=== PATIENT | male | born 1955 | race African-American/Black ===

== ENCOUNTER 2023-03-18 10:46 | Outpatient (AMB) | payer OTHER, SELFPAY ==
--- NOTE | 2023-03-18 10:47 | MHC.PC.OV ---
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 Patient has a past medical history significant for hypertension, AFib, GERD. Patient's previous PCP was at [place]. Concern--> reports his bilateral knees are often in pain. Does not allow him to do some walking and jogging. He reports getting cortisone injections in the past by an orthopedic which did help reduce his pain. He is not interested in knee total arthroplasties at this time. .. GERD: Has had endoscopy in the past and does report having positive findings of esophageal inflammation. Has been on omeprazole since. .. AFIB: does See a Teacher Associate (Dr. Michael) [facility] cardiology. He reports he is fairly stable on current dose of metoprolol, flecainide for rhythm and rate control. Also continues on Eliquis 5 mg b.i.d. without any overt signs of bleeding. He does reports sometimes having some shortness of breath on heavy exertion though usually stabilizes within a few minutes. .. [facility] Surgical History H/O rotator cuff surgery Family History (Updated 03/18/23 @ 11:11 by Adelfo Vance PA-C) Brother Lung cancer Social History (Updated 03/18/23 @ 11:12 by Adelfo Vance PA-C) Household Members: Spouse Housing: House Alcohol intake: current Alcohol intake frequency: a few times a week Patient Tobacco Use Status: Never used Tobacco service: No Current occupational status: retired Questionnaire PHQ-9 Over the last 2 weeks, how often have you been bothered by any of the following problems? 1. Little interest or pleasure in doing things: not at all 2. Feeling down, depressed, or hopeless: not at all 3. Trouble falling or staying asleep, or sleeping too much: not at all 4. Feeling tired or having little energy: not at all 5. Poor appetite or overeating: not at all 6. Feeling bad about yourself - or that you are a failure or have let yourself or your family down: not at all 7. Trouble concentrating on things, such as reading the newspaper or watching television: not at all 8. Moving or speaking so slowly that other people could have noticed. Or the opposite - being so fidgety or restless that you have been moving around a lot more than usual: not at all 9. Thoughts that you would be better off or of hurting yourself in some way: not at all Total score: 0 Source: Developed by Drs. Messi Drake, Blanche Auguste, Ubaldo Mari and colleagues, with an educational quirino from [employer]. Thrive Questionnaire Date Thrive assessed: 03/18/23 I am a: Patient What is your living situation today?: I have a steady place to live Within the past 12 months, did the food you bought not last and you didn't have the money to get more?: Never true Within the past 12 months, did you worry whether your food would run out before you got money to buy more?: Never true Do you have trouble paying for medicines?: No Do you have trouble getting transportation to medical appointments?: No Do you have trouble paying your heating and electricity bill?: No Do you have trouble taking care of your child, family member or friend?: No Do you have trouble with day-to-day activities such as bathing, preparing meals, shopping, managing finances, etc.?: No Are you currently unemployed and looking for a job?: No Are you interested in more education?: No AUDIT C Alcohol Use Questionnaire (AUDIT-C) 1. How often do you have a drink containing alcohol?: 2-3 times a week 2. How many drinks containing alcohol do you have on a typical day when you are drinking?: 1 or 2 3. How often do you have six or more drinks on one occasion?: Never Total Score: 3 NIRANJAN-7 AMB Questionnaire NIRANJAN-7 Date NIRANJAN - 7 assessed: 03/18/23 Feeling nervous, anxious, or on edge: 0 = Not at all Not being able to stop or control worryin = Not at all Worrying too much about different things: 0 = Not at all Trouble relaxin = Not at all Being so restless that it is hard to sit still: 0 = Not at all Becoming easily annoyed or irritable: 0 = Not at all Feeling afraid as if something awful might happen: 0 = Not at all Total NIRANJAN-7 score (0-4 normal; 5-9 mild; 10-14 moderate; 15-21 severe): 0 Source: Developed by Drs. Messi Drake, Blanche Auguste, Ubaldo Mari and colleagues, with an educational quirino from [employer]. Review of Systems Const Denies headache(s) Eyes Denies loss of vision ENT Denies vertigo, Denies dizziness, Denies headache(s) and Denies sore throat Card Denies chest pain, Denies leg edema and Denies lightheadedness Resp Denies cough, Denies hemoptysis and Denies wheezing GI Denies abdominal pain, Denies melena, Denies constipation, Denies diarrhea and Denies vomiting Denies dysuria, Denies urinary frequency and Denies urinary urgency Musc Denies arthralgias, Denies joint swelling, Denies numbness and Denies tingling Neuro Denies Abnormal speech present, Denies behavioral changes, Denies vertigo, Denies dizziness, Denies headache(s), Denies loss of vision, Denies memory loss, Denies numbness and Denies tingling Psych Denies anxiety, Denies behavioral changes, Denies depression, Denies memory loss and Denies panic attacks Cong/Lymph Denies easy bleeding and Denies easy bruising Aller/Immun Denies wheezing Physical exam (Primary Care) Vital Signs: Last Vital Signs Pulse 50 03/18/23 10:49 BP 134/78 03/18/23 10:49 Pulse Ox 98 03/18/23 10:49 Oxygen Delivery Method Room Air 03/18/23 10:49 BMI result Body Mass Index 32.3 BMI Assessment/Plan discussion: High Tobacco/Smoking Status: Tobacco use Status Tobacco use date assessed 03/18/23 03/18/23 10:56 Patient Tobacco Use Status Never used Tobacco 03/18/23 11:12 PHQ-9: PHQ-9 Score PHQ-9: Total score 0 03/18/23 11:14 Thrive Assessment: Date of Thrive Assessment Date Thrive assessed 03/18/23 03/18/23 10:56 Const General: healthy appearing, no acute distress, alert and awake Nutritional Appearance: well nourished Orientation/consciousness: oriented to person, oriented to place and oriented to time HENMT Ears: TM's normal bilaterally General nose exam: Normal nasal mucous membranes and turbinates present Eyes Conjunctivae: conjunctivae normal Sclerae: sclerae normal Pupils: Equal, round and reactive pupils present Neck Neck: Yes no lymphadenopathy and Yes no JVD Thyroid: Thyroid normal Carotids: no bruits Resp Effort & Inspection: normal respiratory effort and not tachypneic Auscultation: no crackles, no rales, no rhonchi and no wheezes Cardio Rate: regular rate Rhythm: regular rhythm Heart sounds: no murmurs and normal S1 and S2 GI Palpation (GI): Soft to palpation, nontender, no hepatomegaly and no splenomegaly Auscultation: normal bowel sounds Skin General skin exam: no rashes or lesions noted and dry skin Neuro General: oriented to person, oriented to place and oriented to time Cranial nerves: Yes Equal, round and reactive pupils present Speech: No Abnormal speech present Gait exam (Neuro): Normal gait present Motor exam (neuro): no tremor noted Extrem Right upper extremity: full ROM Left upper extremity: full ROM Right lower extremity: full ROM; no edema Left lower extremity: full ROM; no edema Psych Mental Status: mental status grossly normal Speech and movement: Normal speech and movement present Affect: normal affect Attitude: cooperative Thought process: Normal thought process present Assessment and Plan Assessment & Plan (1) Afib: Code(s): I48.91 - Unspecified atrial fibrillation Qualifiers: Atrial fibrillation type: longstanding persistent Qualified Code(s): I48.11 - Longstanding persistent atrial fibrillation Plan: Patient is followed by Cardiology at the [facility] in [place]. He has by annual follow-up. He denies any overt signs of bleeding from his anticoagulation. (2) HTN (hypertension): Code(s): I10 - Essential (primary) hypertension Qualifiers: Hypertension type: primary hypertension Qualified Code(s): I10 - Essential (primary) hypertension Plan: Blood pressure today in office acceptable. Will continue his current dose of amlodipine with goal blood pressure to be below 140/90 (3) Obese: Code(s): E66.9 - Obesity, unspecified Qualifiers: Body mass index: BMI 34.0-34.9 Obesity classification: adult class 1 (BMI 30 - 34.9) Obesity type: due to excess calories Serious obesity comorbidity presence: with serious comorbidity Qualified Code(s): E66.09 - Other obesity due to excess calories; Z68.34 - Body mass index [BMI] 34.0-34.9, adult Plan: Patient does understand his BMI is over 30 will work on being more physically active and adapting to better eating habits to reduce his weight (4) GERD (gastroesophageal reflux disease): Code(s): K21.9 - Gastro-esophageal reflux disease without esophagitis Qualifiers: Esophagitis presence: without esophagitis Qualified Code(s): K21.9 - Gastro-esophageal reflux disease without esophagitis Plan: Continues on PPI therapy and reports his GERD symptoms are fairly well controlled. (5) Bilateral knee pain: Code(s): M25.561 - Pain in right knee; M25.562 - Pain in left knee Qualifiers: Chronicity: chronic Qualified Code(s): M25.561 - Pain in right knee; M25.562 - Pain in left knee; G89.29 - Other chronic pain Plan: He would like to see orthopedic for possible cortisone injection in his knees as he does report bilateral knee pain and arthritis for many years now. (6) Colon cancer screening: Code(s): Z12.11 - Encounter for screening for malignant neoplasm of colon Plan: Has been over 10 years since colonoscopy is been done. He is considering another colonoscopy versus Cologuard. Discuss at next office visit. Orders: Orders Comprehensive [place]. Panel Fast Today I10 - Essential (primary) hypertension Microalbumin, Random (w Creat) Today I10 - Essential (primary) hypertension Complete Blood Count no Diff Today I10 - Essential (primary) hypertension Prostate Specific Antigen Scr Today K21.9 - Gastro-esophageal reflux disease without esophagitis, Z12.5 - Encounter for screening for malignant neoplasm of prostate Lipid Panel Today I10 - Essential (primary) hypertension Referrals Orthopedics Referral G89.29 - Other chronic pain, M25.561 - Pain in right knee, M25.562 - Pain in left knee Medications: New omeprazole 40 mg PO QAM 90 days 90 caps 2RF K21.9 - Gastro-esophageal reflux disease without esophagitis folic acid 1 mg PO DAILY 90 days 90 tabs 2RF K21.9 - Gastro-esophageal reflux disease without esophagitis Coding Level of Care Code New Pt Level 4 (71015) Diagnoses Afib I48.11 Atrial fibrillation type: longstanding persistent HTN (hypertension) I10 Hypertension type: primary hypertension Obese E66.09; Z68.34 Body mass index: BMI 34.0-34.9 Obesity classification: adult class 1 (BMI 30 - 34.9) Obesity type: due to excess calories Serious obesity comorbidity presence: with serious comorbidity GERD (gastroesophageal reflux disease) K21.9 Esophagitis presence: without esophagitis Bilateral knee pain M25.561; M25.562; G89.29 Chronicity: chronic Colon cancer screening Z12.11
[2023-03-18 10:49] VITALS: BP 134/78; PULSE 50; O2SAT 98; BMI 32.3
== END 2023-03-18 11:40 | disposition home or self-care (01) ==
PROVIDERS: Visit Provider Physician Assistant
DX: K21.9 Gastro-esophageal reflux disease without esophagitis (principal); I10 Essential (primary) hypertension; E66.09 Other obesity due to excess calories; Z68.34 Body mass index [BMI] 34.0-34.9, adult; I48.11 Longstanding persistent atrial fibrillation; M25.561 Pain in right knee; M25.562 Pain in left knee; G89.29 Other chronic pain; Z12.11 Encounter for screening for malignant neoplasm of colon
CPT/HCPCS: 99204

== ENCOUNTER 2023-03-18 11:52 | Outpatient (REF) | payer OTHER, SELFPAY ==
[2023-03-18 12:26] LABS: Hematocrit 41.8 % (42.0-52.0); Hemoglobin 13.3 g/dl (14.0-18.0); Mean Corpuscular HGB Conc 31.8 g/dl (31.0-36.0); Mean Corpuscular Hemoglobin 28.6 pg (27.0-33.0); Mean Corpuscular Volume 89.9 fL (80.0-98.0); Mean Platelet Volume 11.3 fL (9.4-12.4); Platelet Count 283 X10*3/uL (160-400); Red Blood Count 4.65 X10*6/uL (4.60-5.80); Red Cell Distribution Width 15.3 % (11.0-16.0); White Blood Count 9.4 X10*3/uL (4.8-10.8)
[2023-03-18 13:31] LABS: Alanine Aminotransferase 15 U/L (0-40); Alkaline Phosphatase 58 U/L (39-117); Anion Gap 12 (12-20); Aspartate Amino Transferase 14 U/L (5-37); Bilirubin Total 0.2 mg/dL (0.0-1.0); Blood Urea Nitrogen 21 mg/dL (9-16); Calcium 9.1 mg/dL (8.4-10.2); Carbon Dioxide 25 mmol/L (22-29); Chloride 109 mmol/L (96-108); Cholesterol 163 mg/dL; Estimated Glomerular Filt Rate 57; Glucose Fasting 107 mg/dL (60-99); HDL Cholesterol 48 mg/dL; LDL Cholesterol Calculated 93 mg/dl; Potassium 4.4 mmol/L (3.3-5.1); Sodium 142 mmol/L (135-145); Triglycerides 113 mg/dL
[2023-03-18 13:45] LABS: Prostate Specific Antigen Scr 1.29 ng/mL (<0.05-4.0)
[2023-03-18 15:26] LABS: Creatinine Urine 316.99 mg/dL; Microalbum/Creatinine Ratio Ur 2.8 ug/mg cr
== END 2023-03-18 11:53 | disposition home or self-care (01) ==
LOC: HO.LAB 11:52
PROVIDERS: PCP Physician Assistant; Visit Provider Physician Assistant
DX: Z12.5 Encounter for screening for malignant neoplasm of prostate (principal); I10 Essential (primary) hypertension; K21.9 Gastro-esophageal reflux disease without esophagitis
CPT/HCPCS: 36415; 80053; 80061; 82043; 84153; 85027

== ENCOUNTER 2023-05-01 09:27 | Outpatient (REF) | payer OTHER, SELFPAY ==
--- NOTE | ~2023-05-01 | XR_ITS ---
EXAMINATION: XR KNEE, RIGHT XR KNEE, LEFT XR KNEE, STANDING, BILATERAL CLINICAL INFORMATION: Knee pain. COMPARISON: None available. TECHNIQUE: AP bilateral knees one view. Right knee 2 views. Left knee 2 views. FINDINGS: RIGHT KNEE: Alignment is anatomic. Mild medial compartment joint space narrowing. Severe patellofemoral compartment arthritis. Faint densities in the lateral compartment could reflect chondrocalcinosis or loose bodies. No acute fracture or dislocation. Small effusion. Prominent vascular calcification. LEFT KNEE: Alignment is anatomic. Mild-moderate lateral compartment arthritis. Mild-moderate patellofemoral arthritis. No acute fracture or dislocation. Small effusion. XR/XR knee RT 2V IMPRESSION: RIGHT KNEE: Osteoarthritis. Severe patellofemoral arthritis. LEFT KNEE: Osteoarthritis. Mild-moderate lateral and patellofemoral arthritis. Additional findings and details as above.
--- NOTE | ~2023-05-01 | XR_ITS ---
EXAMINATION: XR KNEE, RIGHT XR KNEE, LEFT XR KNEE, STANDING, BILATERAL CLINICAL INFORMATION: Knee pain. COMPARISON: None available. TECHNIQUE: AP bilateral knees one view. Right knee 2 views. Left knee 2 views. FINDINGS: RIGHT KNEE: Alignment is anatomic. Mild medial compartment joint space narrowing. Severe patellofemoral compartment arthritis. Faint densities in the lateral compartment could reflect chondrocalcinosis or loose bodies. No acute fracture or dislocation. Small effusion. Prominent vascular calcification. LEFT KNEE: Alignment is anatomic. Mild-moderate lateral compartment arthritis. Mild-moderate patellofemoral arthritis. No acute fracture or dislocation. Small effusion. XR/XR knee LT 2V IMPRESSION: RIGHT KNEE: Osteoarthritis. Severe patellofemoral arthritis. LEFT KNEE: Osteoarthritis. Mild-moderate lateral and patellofemoral arthritis. Additional findings and details as above.
--- NOTE | ~2023-05-01 | XR_ITS ---
EXAMINATION: XR KNEE, RIGHT XR KNEE, LEFT XR KNEE, STANDING, BILATERAL CLINICAL INFORMATION: Knee pain. COMPARISON: None available. TECHNIQUE: AP bilateral knees one view. Right knee 2 views. Left knee 2 views. FINDINGS: RIGHT KNEE: Alignment is anatomic. Mild medial compartment joint space narrowing. Severe patellofemoral compartment arthritis. Faint densities in the lateral compartment could reflect chondrocalcinosis or loose bodies. No acute fracture or dislocation. Small effusion. Prominent vascular calcification. LEFT KNEE: Alignment is anatomic. Mild-moderate lateral compartment arthritis. Mild-moderate patellofemoral arthritis. No acute fracture or dislocation. Small effusion. XR/XR knee standing BI IMPRESSION: RIGHT KNEE: Osteoarthritis. Severe patellofemoral arthritis. LEFT KNEE: Osteoarthritis. Mild-moderate lateral and patellofemoral arthritis. Additional findings and details as above.
== END 2023-05-01 09:28 | disposition home or self-care (01) ==
LOC: HO.HOSX 09:27
PROVIDERS: Visit Provider Physician Assistant
DX: M25.561 Pain in right knee (principal); M25.562 Pain in left knee
CPT/HCPCS: 73560; 73565

== ENCOUNTER 2023-05-02 10:15 | Outpatient (REF) | payer OTHER, SELFPAY | END 2023-05-02 10:16 | disposition home or self-care (01) | LOC: HO.HOSX 10:15 | PROVIDERS: Visit Provider Physician Assistant | DX: M17.0 Bilateral primary osteoarthritis of knee (principal) | CPT/HCPCS: 20610; J1040 ==

== ENCOUNTER 2023-05-02 11:11 | Outpatient (AMB) | payer OTHER, SELFPAY ==
--- NOTE | 2023-05-02 11:20 | A.OFFVIS_ITS ---
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 Patient reports off and on pain for many years and its gotten a little better over time. Hx of many cortisone injections with no relief. Hx of taking Tylenol with no relief. Hx of icing with mild relief. Patient reports using knee braces that didn't give him relief. He states that his left knee is worse than the right. Pain is on the lateral aspect of the left knee and for the right knee the pain is behind the knee. 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 The patient reports intermittent pain for many years that has improved slightly over time. He claims the left knee is worse then the right knee. He reports the pain is located on the lateral aspect of the left knee and behind the right knee. He states recently changed his exercise routine to help with relief. However he states about a week ago he irritated the right knee. He state he is not at the point that the knees are stopping him from performing his day to day activities. He states he was told he has softening of the patella and that the patella is not in the correct pocket. He was ambulating with a cane in the past but is not currently using it today. He confirms a history of physical therapy and working on exercises at home, with some relief. He has a history of multiple cortisone injections with no relief. He states he did not feel much difference. Last one was about 3 years ago. He confirms taking Tylenol with no relief. He reports he ices the knee, which gives him relief. He has also used knee braces with no relief. [facility] Surgical History H/O rotator cuff surgery Family History (Updated 03/18/23 @ 11:11 by Adelfo Vance PA-C) Brother Lung cancer Social History Household Members: Spouse Housing: House Alcohol intake: current Alcohol intake frequency: a few times a week Patient Tobacco Use Status: Never used Tobacco service: No Current occupational status: retired Review of Systems Const All systems reviewed & are unremarkable except as noted in HPI and below Physical Exam Vital Signs: BMI result Body Mass Index 32.3 Const General: cooperative and no acute distress Orientation/consciousness: patient oriented x3 Resp Effort & Inspection: normal respiratory effort and able to speak in complete sentences Cardio Peripheral pulses: Peripheral pulses 2+ throughout Skin General skin exam: no rashes or lesions noted Neuro General: patient oriented x3 Extrem Other: Bilateral knees: Normal to inspection. No ecchymosis, erythema, or joint effu ksenia. No tenderness to palpation to the medial or lateral joint lines. Full knee extension and flexion. Crepitus felt with ROM. NVI. Office Procedures Joint Injection/Drain Joint Injection/Drain Primary Site: right knee Secondary Site: left knee Prep: site was prepped using aseptic technique, ethochloride spray was applied and injection warnings given Injected: 80 mg of, DepoMedrol, with 8 mL of (% plain lido ) and in the joint Approach Used: anterolateral Procedure: The patient tolerated the procedure well, but had some pain with the injection and there was some relief with the local anesthesia Coding 09934 - Large joint Procedure code (CPT) selection complete Results Reviewed Results Reviewed: 05/02/23 11:43 Lidocaine HCl 2 % MPF [Xylocaine 2 % MPF] 5 ml .ROUTE .STK-MED ONE methylPREDNISolone acetate [DEPO-MedroL] 80 mg .ROUTE .STK-MED ONE Assessment & Plan Assessment & Plan (1) Osteoarthritis of right knee: Code(s): M17.11 - Unilateral primary osteoarthritis, right knee Qualifiers: Osteoarthritis type: unspecified Qualified Code(s): M17.11 - Unilateral primary osteoarthritis, right knee (2) Osteoarthritis of left knee: Code(s): M17.12 - Unilateral primary osteoarthritis, left knee Qualifiers: Osteoarthritis type: unspecified Qualified Code(s): M17.12 - Unilateral primary osteoarthritis, left knee Plan Mr. Haq is a 67-year-old male who presents in the office today, as a new patient, for an evaluation of bilateral knee pain. The patient reports intermittent pain for many years that has improved slightly over time. He claims the left knee is worse then the right knee. He reports the pain is located on the lateral aspect of the left knee and behind the right knee. He states recently changed his exercise routine to help with relief. However he states about a week ago he irritated the right knee. He state he is not at the point that the knees are stopping him from performing his day to day activities. He states he was told he has softening of the patella and that the patella is not in the correct pocket. He was ambulating with a cane in the past but is not currently using it today. He confirms a history of physical therapy and working on exercises at home, with some relief. He has a history of multiple cortisone injections with no relief. He states he did not feel much difference. Last one was about 3 years ago. He confirms taking Tylenol with no relief. He reports he ices the knee, which gives him relief. He has also used knee braces with no relief. The patient was offered a cortisone injection in the bilateral knees with 80 mg of DepoMedrol. The patient was explained the risk, benefits, and alternatives to receiving this injection. After receiving consent for the injection, the patient had the procedure done while in office today. The patient tolerated the procedure well with no complications. I discussed conservative treatment (cortisone injection, Gel injections, and nerve blocks) verses surgical treatment (total knee arthroplasty). He is not interested in total knee replacements at this time. I educated the patient that it can take about a week before he will feel any relief from the cortisone injection. I also informed him while the arthritis is flared he should modify h is activities. In the event he does not get relief from the cortisone injection he can call the office about moving forward with Gel injections. He states Gel injections would only be considered pending insurance coverage. He would like for the office to reach out to his insurance to see if the Gel injections are covered and to call him with an update on the insurance coverage or denial. Follow up will be in pending approval of Gel injections or PRN, or sooner if needed. X-rays of the bilateral knees obtained while in the office today and reviewed by me, Myriam Schwab PA-C, revealed bilateral knee osteoarthritis. Orders: Orders XR knee standing BI Today M25.569 - Pain in unspecified knee XR knee RT 2V Today M25.569 - Pain in unspecified knee XR knee LT 2V Today M25.569 - Pain in unspecified knee Patient Instructions: Scribed for Myriam Schwab PA-C by Diane Parkinson medical office secretary, on 05/02/2023 at 11:16 am, EST. Coding Level of Care Code New Pt Level 4 (99055) Diagnoses Osteoarthritis of right knee, unspecified osteoarthritis type M17.11 Osteoarthritis type: unspecified Osteoarthritis of left knee, unspecified osteoarthritis type M17.12 Osteoarthritis type: unspecified CPT Codes Coding - 84417 Large joint: 77782 - Large joint ([id number])
[2023-05-02 11:21] VITALS: BMI 32.3
== END 2023-05-02 11:59 | disposition home or self-care (01) ==
PROVIDERS: PCP Physician Assistant; Visit Provider Physician Assistant
DX: M17.0 Bilateral primary osteoarthritis of knee (principal)
CPT/HCPCS: 20610; 99204

== ENCOUNTER 2023-05-19 15:14 | Outpatient (AMB) | payer OTHER, SELFPAY ==
[2023-05-19 15:15] VITALS: BP 104/50; PULSE 27; O2SAT 97; BMI 31.5
--- NOTE | 2023-05-19 15:15 | MHC.PC.OV ---
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 Required: No Accompanied by: Self / Same As Patient Allergies No Known Allergies Allergy (Verified 05/19/23 15:34) Medication List - Last Reconciled 05/19/23 by Adelfo Vance PA-C amlodipine 5 mg PO DAILY apixaban (Eliquis) 5 mg PO BID flecainide 100 mg PO BID folic acid 1 mg PO DAILY 90 days furosemide 40 mg PO DAILY metoprolol succinate ER 25 mg PO DAILY omeprazole 40 mg PO QAM 90 days Tobacco use date assessed: 03/18/23 Fall risk assessment: No Falls in past year Last assessed Fall Risk: 05/19/23 Dental Screening Dental Screen Date: 05/19/23 Did you have a dental visit in the last 12 months?: No Did you have a dental problem in the last 6 months where you did not have access to dental care?: No Was dental information given to patient?: Patient has dentist HPI f/u HTN/ AFIB HPI Details Patient is a 67-year-old male here today for a follow-up visit. Patient has a past medical history significant for hypertension, AFib, GERD. Concern--> reports his bilateral knees are often in pain. Does not allow him to do some walking and jogging. He reports getting cortisone injections in the past by an orthopedic which did help reduce his pain. He is not interested in knee total arthroplasties at this time. .. GERD: Has had endoscopy in the past and does report having positive findings of esophageal inflammation. Has been on omeprazole since. .. AFIB: does See a Answering Service Agent (Dr. Michael) [facility] cardiology. He has been found to have bradycardia on his metoprolol dose was reduced to 25 mg. He is fairly in symptomatic though does report at times after he takes his medication feeling somewhat tired. He is also on flecainide for rhythm and rate control. Also continues on Eliquis 5 mg b.i.d. without any overt signs of bleeding. He does reports sometimes having some shortness of breath on heavy exertion though usually stabilizes within a few minutes. Laboratory Tests 03/18/23 12:13 Creatinine 1.27 PSA Screen 1.29 [facility] Surgical History H/O rotator cuff surgery Family History Brother Lung cancer Social History Household Members: Spouse Housing: House Alcohol intake: current Alcohol intake frequency: a few times a week Patient Tobacco Use Status: Never used Tobacco e-Cigarette/Vaping Use: Never Used service: No Current occupational status: retired Cognitive needs: No Hearing needs: No Vision needs: No Questionnaire Thrive Questionnaire Date Thrive assessed: 03/18/23 NIRANJAN-7 AMB Questionnaire NIRANJAN-7 Date NIRANJAN - 7 assessed: 03/18/23 Source: Developed by Drs. Messi Drake, Blanche Auguste, Ubaldo Mari and colleagues, with an educational quirino from [employer]. Review of Systems Const Denies headache(s) Eyes Denies loss of vision ENT Denies vertigo, Denies dizziness, Denies headache(s) and Denies sore throat Card Denies chest pain, Denies leg edema and Denies lightheadedness Resp Denies cough, Denies hemoptysis and Denies wheezing GI Denies abdominal pain, Denies melena, Denies constipation, Denies diarrhea and Denies vomiting Denies dysuria, Denies urinary frequency and Denies urinary urgency Musc Denies arthralgias, Denies joint swelling, Denies numbness and Denies tingling Neuro Denies Abnormal speech present, Denies behavioral changes, Denies vertigo, Denies dizziness, Denies headache(s), Denies loss of vision, Denies memory loss, Denies numbness and Denies tingling Psych Denies anxiety, Denies behavioral changes, Denies depression, Denies memory loss and Denies panic attacks Cong/Lymph Denies easy bleeding and Denies easy bruising Aller/Immun Denies wheezing Physical exam (Primary Care) Vital Signs: Last Vital Signs Pulse 27 L 05/19/23 15:15 BP 104/50 L 05/19/23 15:15 Pulse Ox 97 05/19/23 15:15 Oxygen Delivery Method Room Air 05/19/23 15:15 BMI result Body Mass Index 31.5 BMI Assessment/Plan discussion: High Tobacco/Smoking Status: Tobacco use Status Tobacco use date assessed 03/18/23 05/19/23 15:17 Patient Tobacco Use Status Never used Tobacco 05/19/23 15:17 e-Cigarette/Vaping Use Never Used 05/19/23 15:23 Thrive Assessment: Date of Thrive Assessment Date Thrive assessed 03/18/23 05/19/23 15:17 Const Other: Obese-weight loss noted General: healthy appearing, no acute distress, alert and awake Nutritional Appearance: well nourished Orientation/consciousness: oriented to person, oriented to place and oriented to time HENMT Ears: TM's normal bilaterally General nose exam: Normal nasal mucous membranes and turbinates present Eyes Conjunctivae: conjunctivae normal Sclerae: sclerae normal Pupils: Equal, round and reactive pupils present Neck Neck: Yes no lymphadenopathy and Yes no JVD Thyroid: Thyroid normal Carotids: no bruits Resp Effort & Inspection: normal respiratory effort and not tachypneic Auscultation: no crackles, no rales, no rhonchi and no wheezes Cardio Rate: regular rate Rhythm: regular rhythm Heart sounds: no murmurs and normal S1 and S2 GI Palpation (GI): Soft to palpation, nontender, no hepatomegaly and no splenomegaly Auscultation: normal bowel sounds Skin General skin exam: no rashes or lesions noted and dry skin Neuro General: oriented to person, oriented to place and oriented to time Cranial nerves: Yes Equal, round and reactive pupils present Speech: No Abnormal speech present Gait exam (Neuro): Normal gait present Motor exam (neuro): no tremor noted Extrem Right upper extremity: full ROM Left upper extremity: full ROM Right lower extremity: full ROM; no edema Left lower extremity: full ROM; no edema Psych Mental Status: mental status grossly normal Speech and movement: Normal speech and movement present Affect: normal affect Attitude: cooperative Thought process: Normal thought process present Assessment and Plan Assessment & Plan (1) Afib: Code(s): I48.91 - Unspecified atrial fibrillation Qualifiers: Atrial fibrillation type: longstanding persistent Qualified Code(s): I48.11 - Longstanding persistent atrial fibrillation Plan: Patient is followed by Cardiology at the [facility] group in [place]. He has by annual follow-up. He denies any overt signs of bleeding from his anticoagulation. Has had his metoprolol reduced due to bradycardia. Today in office somewhat bradycardic though asymptomatic. (2) HTN (hypertension): Code(s): I10 - Essential (primary) hypertension Qualifiers: Hypertension type: primary hypertension Qualified Code(s): I10 - Essential (primary) hypertension Plan: Blood pressure today in office acceptable. Will continue his current dose of amlodipine with goal blood pressure to be below 140/90 (3) Obese: Code(s): E66.9 - Obesity, unspecified Qualifiers: Body mass index: BMI 34.0-34.9 Obesity classification: adult class 1 (BMI 30 - 34.9) Obesity type: due to excess calories Serious obesity comorbidity presence: with serious comorbidity Qualified Code(s): E66.09 - Other obesity due to excess calories; Z68.34 - Body mass index [BMI] 34.0-34.9, adult Plan: Weight loss noted since previous visit. Patient does understand his BMI is over 30 will work on being more physically active and adapting to better eating habits to reduce his weight (4) GERD (gastroesophageal reflux disease): Code(s): K21.9 - Gastro-esophageal reflux disease without esophagitis Qualifiers: Esophagitis presence: without esophagitis Qualified Code(s): K21.9 - Gastro-esophageal reflux disease without esophagitis Plan: Continues on PPI therapy and reports his GERD symptoms are fairly well controlled. (5) Bilateral knee pain: Code(s): M25.561 - Pain in right knee; M25.562 - Pain in left knee Qualifiers: Chronicity: chronic Qualified Code(s): M25.561 - Pain in right knee; M25.562 - Pain in left knee; G89.29 - Other chronic pain Plan: Has osteo arthritis , Seeing orthopedics and has gotten cortisone injections in his knees which have been helpful in reducing his arthritic pain (6) Colon cancer screening: Code(s): Z12.11 - Encounter for screening for malignant neoplasm of colon Plan: Has been over 10 years since colonoscopy is been done. He is considering another colonoscopy versus Cologuard. Discuss at next office visit. (7) Bradycardia: Code(s): R00.1 - Bradycardia, unspecified Plan: Likely secondary to beta-steven. Most recently had his metoprolol reduced to 25 mg (8) Impaired glucose metabolism: Code(s): R73.09 - Other abnormal glucose Plan: Noted most recent fasting blood sugar 107. Has been working on lowering his carbohydrates in his diet and sugar in his diet. Will continue to follow fasting labs. Orders: Orders Hemoglobin A1c 6 Months R73.09 - Other abnormal glucose Microalbumin, Random (w Creat) 6 Months I10 - Essential (primary) hypertension Comprehensive [place]. Panel Fast 6 Months I48.11 - Longstanding persistent atrial fibrillation TSH reflex Free T4 6 Months R00.1 - Bradycardia, unspecified Lipid Panel 6 Months I48.11 - Longstanding persistent atrial fibrillation Medications: Refilled omeprazole 40 mg PO QAM 90 days 90 caps 2RF K21.9 - Gastro-esophageal reflux disease without esophagitis Coding Level of Care Code Est Pt Level 4 (33120) Diagnoses Longstanding persistent atrial fibrillation I48.11 Atrial fibrillation type: longstanding persistent Primary hypertension I10 Hypertension type: primary hypertension Class 1 obesity due to excess calories with serious comorbidity and body mass index (BMI) of 34.0 to 34.9 in adult E66.09; Z68.34 Body mass index: BMI 34.0-34.9 Obesity classification: adult class 1 (BMI 30 - 34.9) Obesity type: due to excess calories Serious obesity comorbidity presence: with serious comorbidity Gastroesophageal reflux disease without esophagitis K21.9 Esophagitis presence: without esophagitis Chronic pain of both knees M25.561; M25.562; G89.29 Chronicity: chronic Colon cancer screening Z12.11 Bradycardia R00.1 Impaired glucose metabolism R73.09
== END 2023-05-19 16:04 | disposition home or self-care (01) ==
PROVIDERS: PCP Physician Assistant; Visit Provider Physician Assistant
DX: I48.11 Longstanding persistent atrial fibrillation (principal); I10 Essential (primary) hypertension; E66.09 Other obesity due to excess calories; Z68.34 Body mass index [BMI] 34.0-34.9, adult; K21.9 Gastro-esophageal reflux disease without esophagitis; M25.561 Pain in right knee; M25.562 Pain in left knee; G89.29 Other chronic pain; Z12.11 Encounter for screening for malignant neoplasm of colon; R00.1 Bradycardia, unspecified; R73.09 Other abnormal glucose
CPT/HCPCS: 99214

== ENCOUNTER 2023-11-18 15:43 | Outpatient (AMB) | payer OTHER, SELFPAY ==
--- NOTE | 2023-11-18 15:44 | MHC.PC.OV ---
Vital Signs 11/18/23 15:45 Height 6 ft Weight 241 lb 0.4 oz BMI 32.7 BP 118/72 Blood Pressure Location Lt brachial Position Sitting Pulse 61 Pulse Source Pulse Oximeter Pulse Oximetry (%) 97 Oxygen Delivery Method Room Air Intake Visit Reasons: 6 month f/u Allergies No Known Allergies Allergy (Verified 11/18/23 15:50) Medication List - Last Reconciled 11/18/23 by Adelfo Vance PA-C amlodipine 5 mg PO DAILY apixaban (Eliquis) 5 mg PO BID flecainide 100 mg PO BID folic acid 1 mg PO DAILY 90 days furosemide 40 mg PO DAILY metoprolol succinate ER 25 mg PO DAILY omeprazole 40 mg PO QAM 90 days Tobacco use date assessed: 11/18/23 Fall risk assessment: No Falls in past year Last assessed Fall Risk: 11/18/23 Dental Screening Dental Screen Date: 11/18/23 Did you have a dental visit in the last 12 months?: No Did you have a dental problem in the last 6 months where you did not have access to dental care?: No Was dental information given to patient?: Patient has dentist HPI 6 month f/u HPI Details Patient is a 68-year-old male here today for a follow-up visit. Patient has a past medical history significant for hypertension, AFib, GERD. Concern--> * * does have some difficulty with navigating the healthcare system and getting refills on time from his Cardiology group. He is interested in have PCP prescribe all his medications. Promises to continue follow-up with his [facility] Cardiology group. ADVISED TO BE SET UP ON HEALTHCARE PORTAL .. GERD: Has had endoscopy in the past and does report having positive findings of esophageal inflammation. Has been on omeprazole since. He reports his GERD symptoms have resolved. .. AFIB: does See a Groundman/Lineman (Dr. Michael) [facility] cardiology. He has been found to have bradycardia on his metoprolol dose was reduced to 12.5mg. He is fairly asymptomatic though does report at times after he takes his medication feeling somewhat tired. He is also on flecainide for rhythm and rate control. Also continues on Eliquis 5 mg b.i.d. without any overt signs of bleeding. He does reports sometimes having some shortness of breath on heavy exertion though usually stabilizes within a few minutes. He has been told by his alarm signaler there may be a new procedure that could care his AFib and place him in normal sinus rhythm and he is considering. .. Hypertension: Patient's blood pressure acceptable today in office. Continues on amlodipine 5 mg daily with good effect. [facility] Surgical History H/O rotator cuff surgery Family History Brother Lung cancer Social History Household Members: Spouse Housing: House Alcohol intake: current Alcohol intake frequency: a few times a week Patient Tobacco Use Status: Never used Tobacco e-Cigarette/Vaping Use: Never Used service: No Current occupational status: retired Cognitive needs: No Hearing needs: No Vision needs: No Questionnaire Thrive Questionnaire Date Thrive assessed: 11/18/23 I am a: Patient What is your living situation today?: I have a steady place to live Within the past 12 months, did the food you bought not last and you didn't have the money to get more?: Never true Within the past 12 months, did you worry whether your food would run out before you got money to buy more?: Never true Do you have trouble paying for medicines?: No Do you have trouble getting transportation to medical appointments?: No Do you have trouble paying your heating and electricity bill?: No Do you have trouble taking care of your child, family member or friend?: No Do you have trouble with day-to-day activities such as bathing, preparing meals, shopping, managing finances, etc.?: No Are you currently unemployed and looking for a job?: No Are you interested in more education?: No Please select the resources that you would like help with: None Currently or been in a relationship where the following occur: no concerns reported THRIVE Score: 0 AUDIT C Alcohol Use Questionnaire (AUDIT-C) 1. How often do you have a drink containing alcohol?: 2-3 times a week 2. How many drinks containing alcohol do you have on a typical day when you are drinking?: 1 or 2 3. How often do you have six or more drinks on one occasion?: Never Total Score: 3 NIRANJAN-7 AMB Questionnaire NIRANJAN-7 Date NIRANJAN - 7 assessed: 11/18/23 Feeling nervous, anxious, or on edge: 0 = Not at all Not being able to stop or control worryin = Not at all Worrying too much about different things: 0 = Not at all Trouble relaxin = Not at all Being so restless that it is hard to sit still: 0 = Not at all Becoming easily annoyed or irritable: 0 = Not at all Feeling afraid as if something awful might happen: 0 = Not at all Total NIRANJAN-7 score (0-4 normal; 5-9 mild; 10-14 moderate; 15-21 severe): 0 Source: Developed by Drs. Messi Drake, Blanche Auguste, Ubaldo Mari and colleagues, with an educational quirino from [employer]. NIRANJAN-7 Assessment Billing NIRANJAN-7 Assessment Tool: NIRANJAN-7 Assessment 69502 Review of Systems Const Denies headache(s) Eyes Denies loss of vision ENT Denies vertigo, Denies dizziness, Denies headache(s) and Denies sore throat Card Denies chest pain, Denies leg edema and Denies lightheadedness Resp Denies cough, Denies hemoptysis and Denies wheezing GI Denies abdominal pain, Denies melena, Denies constipation, Denies diarrhea and Denies vomiting Denies dysuria, Denies urinary frequency and Denies urinary urgency Musc Denies arthralgias, Denies joint swelling, Denies numbness and Denies tingling Neuro Denies Abnormal speech present, Denies behavioral changes, Denies vertigo, Denies dizziness, Denies headache(s), Denies loss of vision, Denies memory loss, Denies numbness and Denies tingling Psych Denies anxiety, Denies behavioral changes, Denies depression, Denies memory loss and Denies panic attacks Cong/Lymph Denies easy bleeding and Denies easy bruising Aller/Immun Denies wheezing Physical exam (Primary Care) Vital Signs: Last Vital Signs Pulse 61 11/18/23 15:45 BP 118/72 11/18/23 15:45 Pulse Ox 97 11/18/23 15:45 Oxygen Delivery Method Room Air 11/18/23 15:45 BMI result Body Mass Index 32.7 Tobacco/Smoking Status: Tobacco use Status Tobacco use date assessed 11/18/23 11/18/23 15:49 Patient Tobacco Use Status Never used Tobacco 11/18/23 15:49 e-Cigarette/Vaping Use Never Used 11/18/23 15:49 Thrive Assessment: Date of Thrive Assessment Date Thrive assessed 11/18/23 11/18/23 15:49 Currently or been in a relationship where the following occur: no concerns reported Const General: healthy appearing, no acute distress, alert and awake Nutritional Appearance: well nourished Orientation/consciousness: oriented to person, oriented to place and oriented to time HENMT Ears: TM's normal bilaterally General nose exam: Normal nasal mucous membranes and turbinates present Eyes Conjunctivae: conjunctivae normal Sclerae: sclerae normal Pupils: Equal, round and reactive pupils present Neck Neck: Yes no lymphadenopathy and Yes no JVD Thyroid: Thyroid normal Carotids: no bruits Resp Effort & Inspection: normal respiratory effort and not tachypneic Auscultation: no crackles, no rales, no rhonchi and no wheezes Cardio Rate: regular rate Rhythm: regular rhythm Heart sounds: no murmurs and normal S1 and S2 GI Palpation (GI): Soft to palpation, nontender, no hepatomegaly and no splenomegaly Auscultation: normal bowel sounds Skin General skin exam: no rashes or lesions noted and dry skin Neuro General: oriented to person, oriented to place and oriented to time Cranial nerves: Yes Equal, round and reactive pupils present Speech: No Abnormal speech present Gait exam (Neuro): Normal gait present Motor exam (neuro): no tremor noted Extrem Right upper extremity: full ROM Left upper extremity: full ROM Right lower extremity: full ROM; no edema Left lower extremity: full ROM; no edema Psych Mental Status: mental status grossly normal Speech and movement: Normal speech and movement present Affect: normal affect Attitude: cooperative Thought process: Normal thought process present Assessment and Plan Assessment & Plan (1) Afib: Code(s): I48.91 - Unspecified atrial fibrillation Qualifiers: Atrial fibrillation type: longstanding persistent Qualified Code(s): I48.11 - Longstanding persistent atrial fibrillation Plan: Patient is followed by Cardiology at the [facility] in [place]. He has by annual follow-up. He denies any overt signs of bleeding from his anticoagulation. Has had his metoprolol reduced to 12.5mg due to bradycardia. Today in office somewhat bradycardic though asymptomatic. * of note he is considering a new cardiac procedure to normalize his heart rhythm. (2) HTN (hypertension): Code(s): I10 - Essential (primary) hypertension Qualifiers: Hypertension type: primary hypertension Qualified Code(s): I10 - Essential (primary) hypertension Plan: Blood pressure today in office acceptable. Will continue his current dose of amlodipine with goal blood pressure to be below 140/90 (3) Obese: Code(s): E66.9 - Obesity, unspecified Qualifiers: Body mass index: BMI 34.0-34.9 Obesity classification: adult class 1 (BMI 30 - 34.9) Obesity type: due to excess calories Serious obesity comorbidity presence: with serious comorbidity Qualified Code(s): E66.09 - Other obesity due to excess calories; Z68.34 - Body mass index [BMI] 34.0-34.9, adult Plan: Weight gain noted since last visit. Patient does understand his BMI is over 30 will work on being more physically active and adapting to better eating habits to reduce his weight (4) GERD (gastroesophageal reflux disease): Code(s): K21.9 - Gastro-esophageal reflux disease without esophagitis Qualifiers: Esophagitis presence: without esophagitis Qualified Code(s): K21.9 - Gastro-esophageal reflux disease without esophagitis Plan: Continues on PPI therapy and reports his GERD symptoms are well controlled. (5) Colon cancer screening: Code(s): Z12.11 - Encounter for screening for malignant neoplasm of colon Plan: Has been over 10 years since colonoscopy is been done. He is considering another colonoscopy versus Cologuard. Discuss at next office visit. (6) Impaired glucose metabolism: Code(s): R73.09 - Other abnormal glucose Plan: Noted most recent fasting blood sugar 107. Has been working on lowering his carbohydrates in his diet and sugar in his diet. Will continue to follow fasting labs. Orders: Orders Prostate Specific Antigen Scr 11/18/23 I10 - Essential (primary) hypertension, Z12.5 - Encounter for screening for malignant neoplasm of prostate Medications: Changed From apixaban (Eliquis) 5 mg PO BID I10 - Essential (primary) hypertension To apixaban (Eliquis) 5 mg PO BID 180 tabs 2RF 90 days I10 - Essential (primary) hypertension From flecainide 100 mg PO BID I48.11 - Longstanding persistent atrial fibrillation To flecainide 100 mg PO BID 180 tabs 2RF 90 days I48.11 - Longstanding persistent atrial fibrillation From amlodipine 5 mg PO DAILY I10 - Essential (primary) hypertension To amlodipine 5 mg PO DAILY 90 tabs 2RF 90 days I10 - Essential (primary) hypertension From furosemide 40 mg PO DAILY I10 - Essential (primary) hypertension To furosemide 40 mg PO DAILY 90 tabs 2RF 90 days I10 - Essential (primary) hypertension From metoprolol succinate ER 25 mg PO DAILY I48.11 - Longstanding persistent atrial fibrillation To metoprolol succinate ER 25 mg PO DAILY 90 tabs 2RF 90 days I48.11 - Longstanding persistent atrial fibrillation Refilled folic acid 1 mg PO DAILY 90 tabs 2RF 90 days K21.9 - Gastro-esophageal reflux disease without esophagitis omeprazole 40 mg PO QAM 90 caps 3RF 90 days K21.9 - Gastro-esophageal reflux disease without esophagitis Patient Instructions: Goals: Blood pressure is to be below 140/90 consistently, control AFib Barriers: Navigating healthcare system, consistently monitoring blood pressure Coding Level of Care Code Est Pt Level 4 (03861) Diagnoses Longstanding persistent atrial fibrillation I48.11 Atrial fibrillation type: longstanding persistent Primary hypertension I10 Hypertension type: primary hypertension Class 1 obesity due to excess calories with serious comorbidity and body mass index (BMI) of 34.0 to 34.9 in adult E66.09; Z68.34 Body mass index: BMI 34.0-34.9 Obesity classification: adult class 1 (BMI 30 - 34.9) Obesity type: due to excess calories Serious obesity comorbidity presence: with serious comorbidity Gastroesophageal reflux disease without esophagitis K21.9 Esophagitis presence: without esophagitis Colon cancer screening Z12.11 Impaired glucose metabolism R73.09 Additional Codes NIRANJAN-7 Assessment Billing - NIRANJAN-7 Assessment Tool: NIRANJAN-7 Assessment [id number] ([id number])
[2023-11-18 15:45] VITALS: BP 118/72; PULSE 61; O2SAT 97; BMI 32.7
== END 2023-11-18 16:35 | disposition home or self-care (01) ==
PROVIDERS: PCP Physician Assistant; Visit Provider Physician Assistant
DX: I48.11 Longstanding persistent atrial fibrillation (principal); I10 Essential (primary) hypertension; E66.09 Other obesity due to excess calories; Z68.34 Body mass index [BMI] 34.0-34.9, adult; K21.9 Gastro-esophageal reflux disease without esophagitis; Z12.11 Encounter for screening for malignant neoplasm of colon; R73.09 Other abnormal glucose
CPT/HCPCS: 99214

== ENCOUNTER 2024-05-24 13:51 | Outpatient (AMB) | payer OTHER, SELFPAY ==
[2024-05-24 13:54] VITALS: BP 128/62; PULSE 37; O2SAT 98; BMI 32.1
--- NOTE | 2024-05-24 13:54 | MHC.PC.OV ---
Vital Signs 05/24/24 13:54 Height 6 ft Weight 237 lb BMI 32.1 BP 128/62 Blood Pressure Location Lt brachial Position Sitting Pulse 37 L Pulse Source Pulse Oximeter Pulse Oximetry (%) 98 Oxygen Delivery Method Room Air Intake Visit Reasons: PE - see comment Knockout Machine Operator Required: No Allergies No Known Allergies Allergy (Verified 05/24/24 14:04) Medication List - Last Reconciled 05/24/24 by Adelfo Vance PA-C amlodipine 5 mg PO DAILY 90 days apixaban (Eliquis) 5 mg PO BID 90 days flecainide 100 mg PO BID 90 days folic acid 1 mg PO DAILY 90 days furosemide 40 mg PO DAILY 90 days metoprolol succinate ER 25 mg PO DAILY 90 days omeprazole 40 mg PO QAM 90 days Tobacco use date assessed: 05/24/24 Fall risk assessment: No Falls in past year Last assessed Fall Risk: 05/24/24 Dental Screening Dental Screen Date: 05/24/24 Did you have a dental visit in the last 12 months?: No Did you have a dental problem in the last 6 months where you did not have access to dental care?: No HPI PE - see comment HPI Details Patient is a 68-year-old male here today for a a routine annual physical. Patient has a past medical history significant for hypertension, AFib, GERD. .. Bradycardia: Continues to bradycardia noted on exam today as well. He is asymptomatic without any syncopal episodes, fatigue, dizziness. He has been checked out at a local ER for an eye issue and it did get an EKG without any significant AV block. During that time Cardiology contacted and had no concerns. Bradycardia seems to have been a chronic finding for Isabel. His metoprolol has been reduced to 12.5 mg and reports he has been feeling better. .. AFIB: does See a Projection Welding Machine Operator (Dr. Michael) [facility] cardiology. He has been found to have bradycardia on his metoprolol dose was reduced to 12.5mg. He is asymptomatic though does report at times after he takes his medication feeling somewhat tired. He is also on flecainide for rhythm and rate control. Also continues on Eliquis 5 mg b.i.d. without any overt signs of bleeding. He has been told by his plant anatomist there may be a new procedure that could care his AFib and place him in normal sinus rhythm and he is considering.\.. .. Hypertension: Patient's blood pressure acceptable today in office. Continues on amlodipine 5 mg daily with good effect. .. Impaired glucose metabolism: Recent fasting blood sugar 100 and A1c is 6.0. Reports following a low carbohydrate and low sugar diet. He is not too physically active though does do some upper body workouts most Colorectal cancer screening: declining colonoscopy at this time. Vaccines: Up-to-date with COVID vaccine, declines flu vaccine [facility] Surgical History H/O rotator cuff surgery Family History Brother Lung cancer Social History (Updated 05/24/24 @ 14:10 by Adelfo Vance PA-C) Household Members: Spouse Housing: House Alcohol intake: current Alcohol intake frequency: a few times a week Patient Tobacco Use Status: Never used Tobacco e-Cigarette/Vaping Use: Never Used service: No Current occupational status: retired Cognitive needs: No Hearing needs: No Vision needs: No Questionnaire PHQ-9 Over the last 2 weeks, how often have you been bothered by any of the following problems? 1. Little interest or pleasure in doing things: not at all 2. Feeling down, depressed, or hopeless: not at all 3. Trouble falling or staying asleep, or sleeping too much: not at all 4. Feeling tired or having little energy: not at all 5. Poor appetite or overeating: not at all 6. Feeling bad about yourself - or that you are a failure or have let yourself or your family down: not at all 7. Trouble concentrating on things, such as reading the newspaper or watching television: not at all 8. Moving or speaking so slowly that other people could have noticed. Or the opposite - being so fidgety or restless that you have been moving around a lot more than usual: not at all 9. Thoughts that you would be better off or of hurting yourself in some way: not at all Total score: 0 Depression Screening Interpretation: Negative Depression Screening Done: Yes 28776 - PHQ-9 Billing: Yes Source: Developed by Drs. Messi Drake, Ubaldo Handley and colleagues, with an educational quirino from [email or web address]. Thrive Questionnaire Date Thrive assessed: 05/24/24 I am a: Patient What is your living situation today?: I have a steady place to live Within the past 12 months, did the food you bought not last and you didn't have the money to get more?: Never true Within the past 12 months, did you worry whether your food would run out before you got money to buy more?: Never true Do you have trouble paying for medicines?: No Do you have trouble getting transportation to medical appointments?: No Do you have trouble paying your heating and electricity bill?: No Do you have trouble taking care of your child, family member or friend?: No Do you have trouble with day-to-day activities such as bathing, preparing meals, shopping, managing finances, etc.?: No Are you currently unemployed and looking for a job?: No Are you interested in more education?: No Please select the resources that you would like help with: None Currently or been in a relationship where the following occur: No concerns reported THRIVE Score: 0 AUDIT C Alcohol Use Questionnaire (AUDIT-C) 1. How often do you have a drink containing alcohol?: 2-4 times a month 2. How many drinks containing alcohol do you have on a typical day when you are drinking?: 1 or 2 3. How often do you have six or more drinks on one occasion?: Never Total Score: 2 NIRANJAN-7 AMB Questionnaire NIRANJAN-7 Date NIRANJAN - 7 assessed: 11/18/23 Feeling nervous, anxious, or on edge: 0 = Not at all Not being able to stop or control worryin = Not at all Worrying too much about different things: 0 = Not at all Trouble relaxin = Not at all Being so restless that it is hard to sit still: 0 = Not at all Becoming easily annoyed or irritable: 0 = Not at all Feeling afraid as if something awful might happen: 0 = Not at all Total NIRANJAN-7 score (0-4 normal; 5-9 mild; 10-14 moderate; 15-21 severe): 0 Source: Developed by Drs. Messi Drake, Ubaldo Handley and colleagues, with an educational quirino from [email or web address]. NIRANJAN-7 Assessment Billing NIRANJAN-7 Assessment Tool: NIRANJAN-7 Assessment 38980 Review of Systems Const Denies body aches, Denies chills, Denies excessive sweating, Denies fatigue, Denies fever(s) and Denies headache(s) Eyes Denies blurry vision ENT Denies dysphagia, Denies vertigo, Denies dizziness, Denies headache(s), Denies hearing loss and Denies tinnitus Card Denies chest pain, Denies chest pain with activity, Denies syncope, Denies irregular heart rhythm and Denies dyspnea Resp Denies chest congestion, Denies cough, Denies hemoptysis, Denies dyspnea and Denies wheezing GI Denies abdominal pain, Denies melena, Denies hematochezia, Denies coffee ground emesis, Denies dysphagia, Denies diarrhea, Denies nausea and Denies vomiting Denies difficulty urinating, Denies dysuria, Denies urinary frequency, Denies urinary hesitancy and Denies urinary urgency Musc Denies arthralgias, Denies limited range of motion, Denies muscle cramps and Denies muscle weakness Skin/Breast Denies rash and Denies skin ulcer Neuro Denies Abnormal speech present, Denies confusion, Denies vertigo, Denies dizziness, Denies syncope, Denies headache(s), Denies memory loss and Denies seizure-like activity Psych Denies anxiety, Denies confusion, Denies depression, Denies memory loss, Denies panic attacks and Denies paranoia Endo Denies excessive sweating, Denies fatigue, Denies flushing, Denies polydipsia and Denies polyuria Aller/Immun Denies wheezing Physical exam (Primary Care) Vital Signs: Last Vital Signs Pulse 37 L 05/24/24 13:54 BP 128/62 05/24/24 13:54 Pulse Ox 98 05/24/24 13:54 Oxygen Delivery Method Room Air 05/24/24 13:54 BMI result Body Mass Index 32.1 Tobacco/Smoking Status: Tobacco use Status Tobacco use date assessed 05/24/24 05/24/24 14:01 Patient Tobacco Use Status Never used Tobacco 05/24/24 14:10 e-Cigarette/Vaping Use Never Used 05/24/24 14:10 PHQ-9: PHQ-9 Score PHQ-9: Total score 0 05/24/24 14:05 Depression Screening Interpretation: Negative Thrive Assessment: Date of Thrive Assessment Date Thrive assessed 05/24/24 05/24/24 14:01 Currently or been in a relationship where the following occur: No concerns reported Const General: cooperative, comfortable, no acute distress, alert and awake; No confusion Orientation/consciousness: oriented to person, oriented to place, patient oriented x3 and No confusion HENMT Head: Yes normocephalic Ears: external ears normal and TM's normal bilaterally Face and sinus: No sinus tenderness Mouth: Normal oral and palatal mucosa present and tongue normal Teeth and gingiva: dentition normal and gingiva normal Throat: Yes posterior oropharynx normal, Yes tonsils normal and Yes uvula midline Eyes Conjunctivae: conjunctivae normal Sclerae: sclerae normal Pupils: Equal, round and reactive pupils present EOM: EOMs intact bilaterally Direct Ophthalmoscopy: No no photophobia Neck Neck: Yes no lymphadenopathy, No tender and Yes no JVD Thyroid: Thyroid normal Carotids: no bruits Chest Chest palpation & inspection: no tenderness Resp Effort & Inspection: normal respiratory effort, no audible wheezes, not labored and no stridor Auscultation: no crackles, no rales, no rhonchi and no wheezes Cardio Jugular venous distension: no JVD Rate: regular rate, not bradycardic and not tachycardic Rhythm: regular rhythm Bruits: no carotid bruits Peripheral pulses: Peripheral pulses 2+ throughout GI Inspection: Yes normal to inspection, No abdominal wall ecchymosis and No visible herniation Palpation (GI): Soft to palpation, nontender, no guarding, not rigid and No hepatosplenomegaly present Auscultation: normoactive bowel sounds General: Yes no CVA tenderness Back/Spine/Pelvis Back: no CVA tenderness and No back tenderness Cervical Spine: cervical ROM normal Thoracic/Lumbar Spine: thoracic and lumbar spine normal to inspection, straight leg raise negative bilaterally, No thoraco-lumbar ROM limited and No lumbar spinal tenderness Skin Lesions: no lesions Rashes: no rashes Wounds: no wounds Neuro General: oriented to person, oriented to place, patient oriented x3, CN's II-XI intact bilaterally and No confusion Cranial nerves: Yes Equal, round and reactive pupils present and Yes Normal accommodation reflex present Cognition (Neuro): normal cognition Speech: No Abnormal speech present Gait exam (Neuro): Normal gait present Motor exam (neuro): 5/5 motor strength present throughout Extrem Right upper extremity: full ROM; no cyanosis Left upper extremity: full ROM; no cyanosis Right lower extremity: no edema Left lower extremity: no edema Psych Appearance: grossly normal Mental Status: mental status grossly normal Affect: normal affect Attitude: cooperative Thought process: Normal thought process present Coding Level of Care Code Est Pt Prev Care >65y(54430) Diagnoses Annual physical exam Z00.00 Primary hypertension I10 Hypertension type: primary hypertension Longstanding persistent atrial fibrillation I48.11 Atrial fibrillation type: longstanding persistent Bradycardia R00.1 Impaired glucose metabolism R73.09 Colon cancer screening Z12.11 Additional Codes NIRANJAN-7 Assessment Billing - NIRANJAN-7 Assessment Tool: NIRANJAN-7 Assessment 10427 ([id number]) Assessment & Plan Assessment & Plan (1) Annual physical exam: Code(s): Z00.00 - Encounter for general adult medical examination without abnormal findings Category: Medical Plan: As per HPI (2) HTN (hypertension): Code(s): I10 - Essential (primary) hypertension Category: Medical Qualifiers: Hypertension type: primary hypertension Qualified Code(s): I10 - Essential (primary) hypertension Plan: Patient's blood pressure acceptable today in office. Will continue current dose of metoprolol with goal blood pressure to remain below 140/90 (3) Afib: Code(s): I48.91 - Unspecified atrial fibrillation Category: Medical Qualifiers: Atrial fibrillation type: longstanding persistent Qualified Code(s): I48.11 - Longstanding persistent atrial fibrillation Plan: Patient reports good control of his AFib. Continues on metoprolol 12.5, flecainide and Eliquis. He denies any overt signs of bleeding. Has upcoming appointment with Cardiology. He reports no recent palpitations or flutters in his chest since he has been doing a bit more exercise (4) Bradycardia: Code(s): R00.1 - Bradycardia, unspecified Category: Medical Plan: Noted continued bradycardia. Fortunately patient is asymptomatic. He did get EKG while recently in the ER without any significant AV block. He does report feeling better since cardiology reduced his metoprolol dose to 12.5 mg. (5) Impaired glucose metabolism: Code(s): R73.09 - Other abnormal glucose Category: Medical Plan: Most recent fasting blood sugar slightly elevated at 100. Does have an A1c is 6.0. He does understand he is a prediabetic and will continue working on low carbohydrate diet. (6) Colon cancer screening: Code(s): Z12.11 - Encounter for screening for malignant neoplasm of colon Category: Medical Plan: Patient is willing to get colonoscopy in the future though will like to hold off on this for now Orders: Orders Hemoglobin A1c 05/24/24 R73.09 - Other abnormal glucose Comprehensive [place]. Panel Fast 05/24/24 R73.09 - Other abnormal glucose Complete Blood Count no Diff 05/24/24 I48.11 - Longstanding persistent atrial fibrillation Microalbumin, Random (w Creat) 05/24/24 I10 - Essential (primary) hypertension Prostate Specific Antigen Scr 05/24/24 I10 - Essential (primary) hypertension, Z12.5 - Encounter for screening for malignant neoplasm of prostate Patient Instructions: Goal: Blood pressure to remain below 140/90, control AFib :Barriers adherence to physical activity and healthy eating habits
== END 2024-05-24 14:44 | disposition home or self-care (01) ==
PROVIDERS: PCP Physician Assistant; Visit Provider Physician Assistant
DX: Z00.00 Encounter for general adult medical examination without abnormal findings (principal); I10 Essential (primary) hypertension; I48.11 Longstanding persistent atrial fibrillation; R00.1 Bradycardia, unspecified; R73.09 Other abnormal glucose; Z12.11 Encounter for screening for malignant neoplasm of colon

== ENCOUNTER → 2024-05-24 13:51 | Outpatient (BNVA) | payer OTHER, SELFPAY | PROVIDERS: PCP Physician Assistant; Visit Provider Physician Assistant | DX: Z00.00 Encounter for general adult medical examination without abnormal findings (principal); I10 Essential (primary) hypertension; I48.11 Longstanding persistent atrial fibrillation; R00.1 Bradycardia, unspecified; R73.09 Other abnormal glucose; Z79.01 Long term (current) use of anticoagulants; Z79.899 Other long term (current) drug therapy | CPT/HCPCS: 96127; 99397 ==

== ENCOUNTER 2024-11-22 14:13 | Outpatient (AMB) | payer OTHER, SELFPAY ==
--- OUTSIDE RECORDS SUMMARY | 2024-11-22 14:16 | XMS_ITS | Clinical Summary ---
Author Organization [address] [facility] Address [address] [place] [address] Phone Care Team Providers Care Teachers Aide Name Role Phone Adelfo Vance Primary Care Provider Allergies No known active allergies Medications metoprolol succinate (TOPROL-XL) 25 mg 24 hr tablet Take 0.5 Tablets by mouth daily. 4 Active flecainide (TAMBOCOR) 100 mg tablet Take 1 tablet (100 mg total) by mouth 2 (two) times a day. 4 Active apixaban (Eliquis) 5 mg tablet Take 5 mg by mouth 2 Times Daily. 4 Active furosemide (LASIX) 40 mg tablet Take 1 tablet (40 mg total) by mouth 1 (one) time each day. 3 Active amLODIPine (NORVASC) 5 mg tablet Take 1 tablet (5 mg total) by mouth 1 (one) time each day. 3 Active omeprazole (PriLOSEC) [address] capsule Take 1 capsule (40 mg total) by mouth 1 (one) time each day before breakfast. 3 Active folic acid (FOLVITE) 1 mg tablet Take 1 tablet (1,000 mcg total) by mouth 1 (one) time each day. 1 Active multivit-min/iron /folic acid/K (ADULTS MULTIVITAMIN ORAL) Take 1 Tablet by mouth daily. Active Active Problems Problem Noted Date Diagnosed Date Primary hypertension 05/06/2022 Overview (06/03/2024): Last Assessment & Plan: Appears well controlled on metoprolol and amlodipine. Encouraged a low-sodium diet and regular exercise. Prediabetes 04/23/2022 Erectile dysfunction 04/22/2022 Obesity (BMI 30.0-34.9) 04/22/2022 Abnormal pulmonary function test 03/19/2022 Overview (06/03/2024): Last Assessment & Plan: I explained Mr. Oliva that in my opinion the pulmonary function test are normal. Although he smoked for many years, he does not have COPD or ILD. In addition to that he does not have any symptoms at this moment of dyspnea or wheezing that require any treatment. He could continue following with his primary care physician. Congestive heart failure ([facility] V24, [facility] V 28) 02/07/2021 Overview (06/03/2024): Congestive heart failure. 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 After catheter ablation of his atrial fibrillation the LVEF normalized. Continues to have ankle swelling requiring diuretics. He does like salty foods but does not use table salt. He uses Lasix a few times a week holding back on doses when he is going out where he does not have ready access to the bathroom. Last Assessment & Plan: Mild heart failure from diastolic dysfunction with a history of left ventricular dysfunction likely atrial fibrillation induced. Appears euvolemic on exam. Continue to follow a low-sodium diet and continue daily Lasix. Atrial fibrillation ([facility] V24, [facility] V28) 1 08/30/2018 Overview (06/03/2024): 66-year-old male with symptomatic paroxysmal atrial fibrillation. [id number] score of 1 for age. He underwent catheter ablation with wide area circumferential ablation along with substrate modification back in 2019. Due to a brief recurrence of the arrhythmia he was placed on flecainide. He had previously been on amiodarone briefly when his LVEF was low. It has normalized based on an echocardiogram after the ablation with an LVEF of 65%. He does not abuse alcohol same as the history of hyperthyroidism. Last Assessment & Plan: Maintaining sinus rhythm with episodes of paroxysmal atrial fibrillation on flecainide and metoprolol. I had a long discussion with him regarding the pros and cons of continued flecainide, transition to an alternative antiarrhythmic drug and repeat ablation. I discussed pulsed field ablation with him in the potential success rates. This would potentially get him off of flecainide. Lauren would need a discussion regarding his [id number] score at the time. We did talk about potentially going back to warfarin if needed from a financial standpoint but he is looking for some financial help from [employer] we will see how that progresses. He is going to get back to me on whether he wants to proceed with a second ablation after discussing with his . Bilateral shoulder pain 11/27/2018 Hemorrhoids 05/02/2017 Rotator cuff tear, left 05/02/2017 Erosive esophagitis 04/05/2016 Dizziness 02/27/2011 Overview (06/03/2024): Small vessel ischemia on MRI. GERD (gastroesophageal reflux disease) 1 Habitual alcohol use 03/30/2010 Overview (06/03/2024): Drinking 1/2 pint of liquor 4 days per week (as of 04/22/2022) Immunizations Name Administration Dates Next Due Tdap Tetanus diptheria acell ular pertussis (Boostrix; Adacel) 7yo and older 04/05/2016 Surgical History Surgery Date Site/Laterality Comments COLONOSCOPY 08/14/10 PROCEDURE: HISTORICAL COLONOSCOPY; COMMENT: hemorrhoids and tics; repeat in ten years ESOPHAGOGASTRODUODENOSCOPY 08/14/10 PROCEDURE: MI ESOPHAGOGASTRODUODENOSCOPY TRANSORAL DIAGNOSTIC; COMMENT: esophageal erosion SHOULDER SURGERY PROCEDURE: HISTORICAL SHOULDER SURGERY; COMMENT: Right rotator cuff, 1989, 1999 NECK SURGERY 2011 PROCEDURE: HISTORICAL NECK SURGERY; COMMENT: Dr Robles MULTIPLE TOOTH EXTRACTIONS PROCEDURE: HISTORICAL DENTAL EXTRACTION OTHER SURGICAL HISTORY 07/20/2019 PROCEDURE: HISTORY OTHER; COMMENT: Pulmonary vein isolation procedure, Dr. Pack Medical History Medical History Date Comments GERD (gastroesophageal reflux disease) DX:GERD (gastroesophageal reflux disease) Atrial fibrillation (CMS/HCC V24, CMS/HCC V28) DX:Atrial fibrillation (HCC) Family History Medical History Relation Name Comments Liver cancer Brother 1 age 47 Alcohol abuse Brother 2 Hypertension Father Asthma Mother Colon cancer Neg Hx Colon polyps Neg Hx Relation Name Status Comments Brother 1 Brother 2 Father Maternal Grandfather Maternal Grandmother Mother Paternal Grandfather Paternal Grandmother Social History Tobacco Use Types Packs/Day Years Used Date Smoking Tobacco: Former Cigarettes 0.5 35.8 1 09/07/1977 - 05/04/2014 Smokeless Tobacco: Never Alcohol Use Standard Drinks/Week Comments Yes 0 (1 standard drink = 0.6 oz pur e alcohol) Sex and Gender Information Value Date Recorded Sex Assigned at Not on file Legal Sex Male 2:29 PM EST Gender Identity Not on file Sexual Orientation Not on file Obstetrics History Last Filed Vital Signs Vital Sign Reading Time Taken Comments Blood Pressure 145/71 06/16/2024 2:41 PM EST Pulse 52 06/02/2024 10:41 AM EDT Temperature - - Respiratory Rate - - Oxygen Saturation - - Inhaled Oxygen Concentration - - Weight 108 kg (238 lb) 06/16/2024 2:41 PM EST Height 182.9 cm (6') 06/16/2024 2:41 PM EST Body Mass Index 32.28 06/16/2024 2:41 PM EST Plan of Treatment Upcoming Encounters Date Type Department Care Team (Late st Contact Info) Description 12/01/2024 1:10 PM EDT Office Visit [facility] [address] [place] [address] Carlene Foy NP [address] [place] [address] Health Maintenance Due Date Last Done Comments Pneumococcal Vaccine: 50+ Years (1 of 2 - PCV) 1975 Zoster Vaccines (1 of 2) 2006 RSV Immunization Adult Patients (1 - Risk 60-74 years 1-dose series) 2016 Colorectal Cancer Screening: Colonoscopy 07/13/2022 Depression Screening 07/13/2022 Falls Risk Assessment 07/13/2022 Medicare Annual Wellness Visit 07/13/2022 Social Influencers of Health Screening 07/13/2022 COVID-19 Vaccine ( season) 2024 11/23/2022, 07/11/2021, 12/13/2020, Additional history exists Hypertension/CHF/CAD Annual BMP Blood Test 11/26/2024 11/27/2023 Influenza Vaccine (Season Ended) 2025 DTaP,Tdap,and Td Vaccines (2 - Td or Tdap) 04/05/2026 04/05/2016 Cholesterol Screening (Lipid Panel) 04/22/2027 04/22/2022 Hepatitis C Screening Completed 11/25/2014 Abdominal Aortic Aneurysm (AAA) Screen Completed 11/15/2021 HIB Vaccines Aged Out No longer eligi ble based on patient's age to complete this topic HPV Vaccines Aged Out No longer eligi ble based on patient's age to complete this topic Hepatitis A Vaccines Aged Out No long er eligible based on patient's age to complete this topic Hepatitis B Vaccines Aged Out No long er eligible based on patient's age to complete this topic IPV Vaccines Aged Out No longer eligi ble based on patient's age to complete this topic MMR Vaccines Aged Out No longer eligi ble based on patient's age to complete this topic Meningococcal ACWY Vaccine Aged Out N o longer eligible based on patient's age to complete this topic Meningococcal B Vaccine Aged Out No l onger eligible based on patient's age to complete this topic RSV Immunization Patients Under 20 months Aged Out No longer eligible based on patient's age to complete this topic Varicella Vaccines Aged Out No longer eligible based on patient's age to complete this topic Procedures Procedure Name Priority Date/Time Associated Diagnosis Comments ANNUAL BMP BLOOD TEST Routine 11/27/2023 LIPID PANEL Routine 04/22/2022 ABDOMINAL AORTIC ANEURYSM SCRREN Routine 11/15/2021 HEPATITIS C SCREENING Routine 11/25/2014 from Last 3 Months or Most Recently Relevant to Health Maintenance Results * Annual BMP Blood Test (11/27/2023) Annual BMP Blood Test abstracted us Historical Provider MD HEALTH MAINTENANCE Final Result * Lipid panel (04/22/2022) LDL/HDL Ratio 3 0 - 4 Triglycerides 128 0 - 150 mg/dL Cholesterol 185 0 - 200 mg/dL HDL 60 >=40 mg/dL LDL Cholesterol 100 0 - 100 mg/dL Blood Venous blood specimen / Unknown Historical Provider LAB BLOOD ORDERABLES Yessenia l Result * Abdominal Aortic Aneurysm Screen (11/15/2021) Abdominal Aortic Aneurysm (AAA) Screening abstracted Anatomical Region Laterality Modality Other Historical Provider HEALTH MAINTENANCE Final Result * Hepatitis C Screening (11/25/2014) Hepatitis C Screening abstracted [facility] Provider HEALTH MAINTENANCE Final Result from Last 3 Months or Most Recently Relevant to Health Maintenance Insurance [employer] on file Care Teams Teachers Aide Relationship Specialty Start Date End Date Adelfo Vance PA PCP - General 11/17/23
[2024-11-22 14:17] VITALS: BP 118/80; PULSE 44; TEMP 36.3; O2SAT 99; BMI 32.6
--- NOTE | 2024-11-22 14:17 | MHC.PC.OV ---
Vital Signs 11/22/24 14:17 Height 6 ft Weight 240 lb 2 oz BMI 32.6 BP 118/80 Blood Pressure Location Lt brachial Position Sitting Pulse 44 L Pulse Source Pulse Oximeter Temp 97.3 F Temp Source Temporal Artery Scan Pulse Oximetry (%) 99 Oxygen Delivery Method Room Air Intake Visit Reasons: f/u AFIB Dtp Operator Required: No Accompanied by: Self / Same As Patient Allergies No Known Allergies Allergy (Verified 11/22/24 14:36) Medication List - Last Reconciled 11/22/24 by Adelfo Vance PA-C amlodipine 5 mg PO DAILY 90 days apixaban (Eliquis) 5 mg PO BID 90 days flecainide 100 mg PO BID 90 days folic acid 1 mg PO DAILY 90 days furosemide 40 mg PO DAILY 90 days metoprolol succinate ER 25 mg PO DAILY 90 days omeprazole 40 mg PO QAM 90 days Tobacco use date assessed: 11/22/24 Fall risk assessment: No Falls in past year Last assessed Fall Risk: 11/22/24 Dental Screening Dental Screen Date: 11/22/24 Did you have a dental visit in the last 12 months?: No Did you have a dental problem in the last 6 months where you did not have access to dental care?: No Was dental information given to patient?: No HPI f/u AFIB HPI Details Patient is a 69 year-old male here today for a follow-up visit. Patient has a past medical history significant for hypertension, AFib, GERD. Concern--> Discussion concerning furosemide suggests possible side effects. These include potential dizziness and dehydration. The patient adheres to previous heart failure management guidelines limiting his fluid intake and wonders if fluid restriction coupled with furosemide could cause dehydration. He reports this treatment approach was set post initial heart failure diagnosis to prevent fluid overload, opting for minimal intake today. .. Bradycardia: Continues to bradycardia noted on exam today as well. He is asymptomatic without any syncopal episodes, fatigue, dizziness.. Bradycardia seems to have been a chronic finding for Isabel. His metoprolol has been reduced to 12.5 mg and reports he has been feeling better. .. AFIB: does See a [place] Support Worker (Dr. Michael) [facility] cardiology. He has been found to have bradycardia on his metoprolol dose was reduced to 12.5mg. He is asymptomatic though does report at times after he takes his medication feeling somewhat tired. He is also on flecainide for rhythm and rate control. Also continues on Eliquis 5 mg b.i.d. without any overt signs of bleeding. 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 .. Hypertension: Patient's blood pressure acceptable today in office. Continues on amlodipine 5 mg daily with good effect. .. Impaired glucose metabolism: Recent fasting blood sugar 100 and A1c is 6.0. Reports following a low carbohydrate and low sugar diet. He is not too physically active though does do some upper body workouts most [facility] Surgical History H/O rotator cuff surgery Family History Brother Lung cancer Social History Household Members: Spouse Housing: House Alcohol intake: current Alcohol intake frequency: a few times a week Patient Tobacco Use Status: Never used Tobacco e-Cigarette/Vaping Use: Never Used service: No Current occupational status: retired Cognitive needs: No Hearing needs: No Vision needs: No Questionnaire PHQ-9 Over the last 2 weeks, how often have you been bothered by any of the following problems? 1. Little interest or pleasure in doing things: not at all 2. Feeling down, depressed, or hopeless: not at all 3. Trouble falling or staying asleep, or sleeping too much: not at all 4. Feeling tired or having little energy: not at all 5. Poor appetite or overeating: not at all 6. Feeling bad about yourself - or that you are a failure or have let yourself or your family down: not at all 7. Trouble concentrating on things, such as reading the newspaper or watching television: not at all 8. Moving or speaking so slowly that other people could have noticed. Or the opposite - being so fidgety or restless that you have been moving around a lot more than usual: not at all 9. Thoughts that you would be better off or of hurting yourself in some way: not at all Total score: 0 Depression Screening Interpretation: Negative Depression Screening Done: Yes 42721 - PHQ-9 Billing: Yes Source: Developed by Drs. Messi Drake, Blanche Auguste, Ubaldo Mari and colleagues, with an educational quirino from [employer]. Thrive Questionnaire Date Thrive assessed: 11/22/24 I am a: Patient What is your living situation today?: I have a steady place to live Within the past 12 months, did the food you bought not last and you didn't have the money to get more?: Never true Within the past 12 months, did you worry whether your food would run out before you got money to buy more?: Never true Do you have trouble paying for medicines?: No Do you have trouble getting transportation to medical appointments?: No Do you have trouble paying your heating and electricity bill?: No Do you have trouble taking care of your child, family member or friend?: No Do you have trouble with day-to-day activities such as bathing, preparing meals, shopping, managing finances, etc.?: No Are you currently unemployed and looking for a job?: No Are you interested in more education?: No Please select the resources that you would like help with: None Currently or been in a relationship where the following occur: No concerns reported THRIVE Score: 0 AUDIT C Alcohol Use Questionnaire (AUDIT-C) 1. How often do you have a drink containing alcohol?: 2-4 times a month 2. How many drinks containing alcohol do you have on a typical day when you are drinking?: 1 or 2 3. How often do you have six or more drinks on one occasion?: Never Total Score: 2 NIRANJAN-7 AMB Questionnaire NIRANJAN-7 Date NIRANJAN - 7 assessed: 11/22/24 Feeling nervous, anxious, or on edge: 0 = Not at all Not being able to stop or control worryin = Not at all Worrying too much about different things: 0 = Not at all Trouble relaxin = Not at all Being so restless that it is hard to sit still: 0 = Not at all Becoming easily annoyed or irritable: 0 = Not at all Feeling afraid as if something awful might happen: 0 = Not at all Total NIRANJAN-7 score (0-4 normal; 5-9 mild; 10-14 moderate; 15-21 severe): 0 Source: Developed by Drs. Messi Drake, Blanche Auguste, Ubaldo Mari and colleagues, with an educational quirino from [employer]. NIRANJAN-7 Assessment Billing NIRANJAN-7 Assessment Tool: NIRANJAN-7 Assessment 61085 Review of Systems Const Denies headache(s) Eyes Denies loss of vision ENT Denies vertigo, Denies dizziness, Denies headache(s) and Denies sore throat Card Denies chest pain, Denies leg edema and Denies lightheadedness Resp Denies cough, Denies hemoptysis and Denies wheezing GI Denies abdominal pain, Denies melena, Denies constipation, Denies diarrhea and Denies vomiting Denies dysuria, Denies urinary frequency and Denies urinary urgency Musc Denies arthralgias, Denies joint swelling, Denies numbness and Denies tingling Neuro Denies Abnormal speech present, Denies behavioral changes, Denies vertigo, Denies dizziness, Denies headache(s), Denies loss of vision, Denies memory loss, Denies numbness and Denies tingling Psych Denies anxiety, Denies behavioral changes, Denies depression, Denies memory loss and Denies panic attacks Cong/Lymph Denies easy bleeding and Denies easy bruising Aller/Immun Denies wheezing Physical exam (Primary Care) Vital Signs: Last Vital Signs Temp 97.3 F 11/22/24 14:17 Pulse 44 L 11/22/24 14:17 BP 118/80 11/22/24 14:17 Pulse Ox 99 11/22/24 14:17 Oxygen Delivery Method Room Air 11/22/24 14:17 BMI result Body Mass Index 32.6 BMI Assessment/Plan discussion: High BMI High, discussed plan: lifestyle, weight reduction, dietary and physical activity Tobacco/Smoking Status: Tobacco use Status Tobacco use date assessed 11/22/24 11/22/24 14:34 Patient Tobacco Use Status Never used Tobacco 11/22/24 14:19 e-Cigarette/Vaping Use Never Used 11/22/24 14:19 PHQ-9: PHQ-9 Score PHQ-9: Total score 0 11/22/24 14:37 Depression Screening Interpretation: Negative Thrive Assessment: Date of Thrive Assessment Date Thrive assessed 11/22/24 11/22/24 14:19 Currently or been in a relationship where the following occur: No concerns reported Const General: healthy appearing, no acute distress, alert and awake Nutritional Appearance: well nourished Orientation/consciousness: oriented to person, oriented to place and oriented to time HENMT Ears: TM's normal bilaterally General nose exam: Normal nasal mucous membranes and turbinates present Eyes Conjunctivae: conjunctivae normal Sclerae: sclerae normal Pupils: Equal, round and reactive pupils present Neck Neck: Yes no lymphadenopathy and Yes no JVD Thyroid: Thyroid normal Carotids: no bruits Resp Effort & Inspection: normal respiratory effort and not tachypneic Auscultation: no crackles, no rales, no rhonchi and no wheezes Cardio Rate: regular rate Rhythm: regular rhythm Heart sounds: no murmurs and normal S1 and S2 GI Palpation (GI): Soft to palpation, nontender, no hepatomegaly and no splenomegaly Auscultation: normal bowel sounds Skin General skin exam: no rashes or lesions noted and dry skin Neuro General: oriented to person, oriented to place and oriented to time Cranial nerves: Yes Equal, round and reactive pupils present Speech: No Abnormal speech present Gait exam (Neuro): Normal gait present Motor exam (neuro): no tremor noted Extrem Right upper extremity: full ROM Left upper extremity: full ROM Right lower extremity: full ROM; no edema Left lower extremity: full ROM; no edema Psych Mental Status: mental status grossly normal Speech and movement: Normal speech and movement present Affect: normal affect Attitude: cooperative Thought process: Normal thought process present Coding Level of Care Code Est Pt Level 4 (17444) Diagnoses Primary hypertension I10 Hypertension type: primary hypertension Longstanding persistent atrial fibrillation I48.11 Atrial fibrillation type: longstanding persistent Bradycardia R00.1 Impaired glucose metabolism R73.09 Class 1 obesity E66.811 Additional Codes NIRANJAN-7 Assessment Billing - NIRANJAN-7 Assessment Tool: NIRANJAN-7 Assessment 89906 ([id number]) PHQ-9 - 95025 - PHQ-9 Billing: Yes ([id number]) Assessment & Plan Assessment & Plan (1) HTN (hypertension): Code(s): I10 - Essential (primary) hypertension Category: Medical Qualifiers: Hypertension type: primary hypertension Qualified Code(s): I10 - Essential (primary) hypertension Plan: Patient's blood pressure acceptable today in office. Will continue current dose of metoprolol with goal blood pressure to remain below 140/90 (2) Afib: Code(s): I48.91 - Unspecified atrial fibrillation Category: Medical Qualifiers: Atrial fibrillation type: longstanding persistent Qualified Code(s): I48.11 - Longstanding persistent atrial fibrillation Plan: Patient reports good control of his AFib. Continues on metoprolol 12.5, flecainide and Eliquis. He denies any overt signs of bleeding. Has upcoming appointment with Cardiology. He reports no recent palpitations or flutters in his chest since he has been doing a bit more exercise (3) Bradycardia: Code(s): R00.1 - Bradycardia, unspecified Category: Medical Plan: Noted continued bradycardia. Fortunately patient is asymptomatic. He does report feeling better since cardiology reduced his metoprolol dose to 12.5 mg. Assessed as attributed possibly to water pill effects; hydration habits considered suboptimal. Addressed with patient potential for contributing to dizziness, comprehensive approach inclusive of cardiology input required. (4) Impaired glucose metabolism: Code(s): R73.09 - Other abnormal glucose Category: Medical Plan: Consideration of medication-related side effects influencing dizziness and fluid management. (5) Class 1 obesity: Code(s): E66.811 - Obesity, class 1 Category: Medical Plan: Patient does understand his BMI is over 30 will work on being more physically active and adapting to better eating habits to reduce his weight
== END 2024-11-22 14:56 | disposition home or self-care (01) ==
PROVIDERS: PCP Physician Assistant; Visit Provider Physician Assistant
DX: I10 Essential (primary) hypertension (principal); I48.11 Longstanding persistent atrial fibrillation; E66.811 Obesity, class 1; Z68.32 Body mass index [BMI] 32.0-32.9, adult; R00.1 Bradycardia, unspecified; R73.09 Other abnormal glucose

== ENCOUNTER → 2024-11-22 14:13 | Outpatient (BNVA) | payer SELFPAY | PROVIDERS: PCP Physician Assistant; Visit Provider Physician Assistant | DX: I10 Essential (primary) hypertension (principal); I48.11 Longstanding persistent atrial fibrillation; R00.1 Bradycardia, unspecified; R73.09 Other abnormal glucose; E66.811 Obesity, class 1; Z68.32 Body mass index [BMI] 32.0-32.9, adult; Z79.01 Long term (current) use of anticoagulants; Z79.899 Other long term (current) drug therapy | CPT/HCPCS: 96127 ==